=== PATIENT | female | born 1955 | race Caucasian/White ===

== ENCOUNTER 2022-04-05 07:50 | Day surgery (SDC) | payer MEDICARE, SELFPAY ==
[2022-04-05 08:24] VITALS: BMI 25.7
[2022-04-05 08:30] VITALS: BP 155/64; PULSE 68; RESP 16; TEMP 36.6; O2SAT 99
--- NOTE | 2022-04-05 09:41 | MHC.SHP ---
Pre-Procedural Eval Section A Date of Service: 04/05/22 The patient is an INPATIENT: No Changes since office visit: No Cold of Flu in the past 2 weeks, No New Medical Problems, No Changes in Medication and No Patient answered all questions The History & Physical has been completed within 30 days and I have reviewed it.: Yes Section B Chief Complaint: screening Allergies: Allergies Allergy/AdvReac Type Severity Reaction Status Date / Time No Known Allergies Allergy Verified 04/05/22 08:23 Plan I have reviewed the history and physical and performed a pertinent physical examination on my patient. No changes have occurred unless specified. Time Spent With Patient Time: Total time managing care of this patient today ____ minutes.
--- NOTE | 2022-04-05 09:48 | HO.ANESPROP2 ---
HPI - Anesthesia Eval Consult details Narrative: colonoscopy [facility] Past Medical History Medical History (Updated 04/05/22 @ 08:11 by Josephine Childress) Elevated cholesterol HTN (hypertension) Family History Family history of problems with anesthesia: No Surgical History Surgical History (Updated 04/05/22 @ 08:11 by Josephine Childress) H/O colonoscopy H/O: hysterectomy Hx of tonsillectomy History of Problems with Anesthesia: No Social History Social History Patient Tobacco Use Status: Former Tobacco user Quit Date: 1975 Tobacco use type: Cigarette Cigarettes Per Day: 4 Years Smoked: 7 Smoked in Last 30 Days: No Use of substances other than those prescribed or required for medical reasons: No Are you DNR?: No Advance Directives: No Advance Directives Information Provided: Yes Meds Allergies Allergy/AdvReac Type Severity Reaction Status Date / Time No Known Allergies Allergy Verified 04/05/22 08:23 Home Medications Medication Instructions Recorded Confirmed Last Taken Type atorvastatin 10 mg tablet 1 tab PO DAILY 04/04/22 04/05/22 Unknown History valsartan 160 mg tablet 1 tab PO DAILY 04/04/22 04/05/22 04/04/22 History Exam Exam Date and Time: April 05, 2022 0948 Height,Weight and Vital Signs: Height 5 ft 4 in Weight 68.039 kg Last Vital Signs Temp 97.8 F 04/05/22 08:30 Pulse 68 04/05/22 08:30 Resp 16 04/05/22 08:30 BP 155/64 H 04/05/22 08:30 Pulse Ox 99 04/05/22 08:30 O2 Del Method 04/05/22 08:30 Assessment and Plan Final Anesthetic Review Family History of Problems with Anesthesia: No History of Problems with Anesthesia: No
--- NOTE | 2022-04-05 09:49 | HO.ANESPROP2 ---
HPI - Anesthesia Eval Consult details Narrative: 66 yr old for colon screen due to history of polyps [facility] Past Medical History Medical History (Updated 04/05/22 @ 08:11 by Josephine Childress) Elevated cholesterol HTN (hypertension) Family History Family history of problems with anesthesia: No Surgical History Surgical History (Updated 04/05/22 @ 08:11 by Josephine Childress) H/O colonoscopy H/O: hysterectomy Hx of tonsillectomy History of Problems with Anesthesia: No Social History Social History Patient Tobacco Use Status: Former Tobacco user Quit Date: 1975 Tobacco use type: Cigarette Cigarettes Per Day: 4 Years Smoked: 7 Smoked in Last 30 Days: No Use of substances other than those prescribed or required for medical reasons: No Are you DNR?: No Advance Directives: No Advance Directives Information Provided: Yes Meds Allergies Allergy/AdvReac Type Severity Reaction Status Date / Time No Known Allergies Allergy Verified 04/05/22 08:23 Home Medications Medication Instructions Recorded Confirmed Last Taken Type atorvastatin 10 mg tablet 1 tab PO DAILY 04/04/22 04/05/22 Unknown History valsartan 160 mg tablet 1 tab PO DAILY 04/04/22 04/05/22 04/04/22 History Exam Exam Date and Time: April 05, 2022 0949 Height,Weight and Vital Signs: Height 5 ft 4 in Weight 68.039 kg Last Vital Signs Temp 97.8 F 04/05/22 08:30 Pulse 68 04/05/22 08:30 Resp 16 04/05/22 08:30 BP 155/64 H 04/05/22 08:30 Pulse Ox 99 04/05/22 08:30 O2 Del Method 04/05/22 08:30 Airway Mallampati Class: II TM Dist: >3cm Neck ROM: Full Heart: rrr Lungs: cya Assessment and Plan Assessment Anesthesia Assessment: Anesthesia Plan Discussed and Chart Reviewed Final Anesthetic Review Family History of Problems with Anesthesia: No History of Problems with Anesthesia: No NPO: Yes Final Preanesthetic Review: No Changes in Pt Med Stat, Meds/Allgs Chart Reviewed, Consent Obtained/Reviewed and Anes Risks/Benef Reviewed Patient Risk: Low Procedure Risk: Low Anesthetic Plan Anesthetic Plan: MAC: and Agree w/ Assess. and Plan Disposition: Standard PACU
[2022-04-05] MEDS: Lactated Ringers 1,000 ML 50 ML IVCONT (09:51)
--- NOTE | 2022-04-05 10:29 | P.BOP_ITS ---
Brief Operative Note Date of Service: 04/05/22 Pre-op diagnosis: screening Post-op diagnosis: same Surgeon: Cesario Jones Was an Production Administrator used for this Procedure?: No Estimated blood loss (mL): 0 Pathology: none sent Condition: stable Disposition: PACU
[2022-04-05 10:32] VITALS: BP 103/53; PULSE 65; RESP 20; TEMP 36.6; O2SAT 96
--- NOTE | 2022-04-05 10:46 | OP_ITS ---
SURGEON: Cesario Jones MD INDICATIONS: Colon cancer screening and prior history of colon polyps. PREOPERATIVE DIAGNOSIS: POSTOPERATIVE DIAGNOSIS: PROCEDURE PERFORMED: Colonoscopy to the terminal ileum. ESTIMATED BLOOD LOSS: COMPLICATIONS: ANESTHESIA: Monitored anesthesia care. ASSISTANTS: SPECIMENS: DESCRIPTION OF PROCEDURE: A history and physical was performed. The procedure was performed on 04/05/2022. The risks and benefits of the procedure were explained to the patient, and informed consent was obtained. The patient was placed in the left lateral decubitus position. A digital rectal exam was performed and was found to be normal. The Olympus pediatric video colonoscope was introduced into the rectum and advanced to the cecum without difficulty. The cecum was identified by transillumination, palpation, and identification of ileocecal valve. Examination was performed. The scope was removed. She tolerated the procedure well and was returned to the recovery area in stable condition. FINDINGS: The terminal ileum was examined and appeared normal. The visualized colonic mucosa was normal. The quality of the prep was good. There was some liquid stool in the descending colon and some undigested planned material, which was washed and suctioned as best possible. No polyps were identified. Retroflexed examination showed small internal hemorrhoids. IMPRESSION: Normal colonoscopy. RECOMMENDATION: 1. Followup as needed. 2. Repeat colonoscopy is recommended in 10 years for average risk individuals. MD DIETER Gan/LUC / [id number]
[2022-04-05 10:47] VITALS: BP 112/52; PULSE 61; RESP 18; TEMP 36.6; O2SAT 100
== END 2022-04-05 11:27 | disposition home or self-care (01) ==
PROVIDERS: PCP Physician Assistant Medical; Visit Provider Internal Medicine Gastroenterology
PROC: 0DJD8ZZ Inspection of Lower Intestinal Tract, Via Natural or Artificial Opening Endoscopic (ICD-10-PCS; CPT 45378; principal; 2022-04-05 09:20)
DX: Z12.11 Encounter for screening for malignant neoplasm of colon (principal); Z86.010 Personal history of colon polyps; K64.8 Other hemorrhoids; I10 Essential (primary) hypertension; E78.00 Pure hypercholesterolemia, unspecified; Z79.899 Other long term (current) drug therapy
CPT/HCPCS: G0105